=== PATIENT | male | born 1950 | race Caucasian/White ===

== ENCOUNTER 2017-01-04 06:02 | Day surgery (SDC) | payer MEDICARE, OTHER ==
--- NOTE | 2017-01-02 08:18 | SSS ---
CHIEF COMPLAINT: Need for screening colonoscopy. HISTORY OF PRESENT ILLNESS: Mr. Patterson is a 66-year-old male who presented to my office for followup. It was noted it had been over ten years since his last colonoscopy. He presents now for repeat colonoscopy. Risks and benefits were discussed and he is agreeable with proceeding. His last colonoscopy was in 2004 and was done by Dr. Johnson. It showed moderate left sided diverticulosis only. He has had no blood in his bowels or change in his bowel habits or abdominal pain. PAST MEDICAL HISTORY: 1. Hyperlipidemia. 2. Diverticulosis. 3. Gastroesophageal reflux disease. 4. Family history of colonic polyps. 5. History of adrenal adenoma on CT scan in 2004 during hospitalization for diverticulitis. PAST SURGICAL HISTORY: Negative other than the colonoscopy as above and removal of moles in 1990. CURRENT MEDICATIONS: None. ALLERGIES: NONE. FAMILY HISTORY: Father at 80 from congestive heart failure. He was a heavy smoker and had abdominal aortic bypass surgery. Mother is healthy. One brother with hypertension and also hiatal hernia with reflux. He has one sister. He has two sons, both in good health, and two daughters, both in good health. Maternal grandmother had brain tumor, a paternal uncle with Hodgkin's, paternal aunt with some other sort of cancer. SOCIAL HISTORY: He is an commercial attorney. He is with four children. He smoked two packs per day since age 17, but quit in 1981. He drinks alcohol very infrequently. REVIEW OF SYSTEMS: Negative except as in the history of present illness. PHYSICAL EXAMINATION: VITAL SIGNS: Blood pressure 130/80. Weight 224. Pulse 70. GENERAL: He is awake and alert, in no acute distress. HEENT: Unremarkable. NECK: Supple. LUNGS: Clear. CARDIOVASCULAR: Regular rate and rhythm without appreciable murmurs. ABDOMEN: Soft, nontender. EXTREMITIES: Without edema. RECTAL: Deferred until time of colonoscopy. NEUROLOGIC: Grossly nonfocal. ASSESSMENT: 1. Need for screening colonoscopy. 2. History of diverticulosis. PLAN: Colonoscopy on 01/04/17. #[id number] [facility]
[2017-01-04] MEDS ORDERED: LACTATED RINGERS 1,000 ML ONE (06:10)
[2017-01-04] MEDS ORDERED: PROPOFOL 200 MG/20 ML VIAL IV ONE (07:00)
[2017-01-04] MEDS ORDERED: LIDOCAINE 1% 10 ML VIAL INJ ONE (07:00)
--- NOTE | 2017-01-04 09:05 | OP ---
DATE OF PROCEDURE: 01/04/17 PREOPERATIVE DIAGNOSIS: 1. Screening colonoscopy. POSTOPERATIVE DIAGNOSIS: 1. Left sided diverticula, small, but moderate in number. 2. Otherwise, normal colonoscopy to the cecum. PROCEDURE: 1. Colonoscopy. SURGEON: Curtis Thurman MD. ESTIMATED BLOOD LOSS: None. COMPLICATIONS: No immediate complications. ANESTHESIA: Propofol 380 mg administered intravenously by Edmund Chauhan CRNA, using monitored anesthesia care. TECHNIQUE: After informed consent was obtained from the patient, the patient was taken to the Endoscopy Suite and placed in the left lateral decubitus position. After adequate conscious sedation was obtained, digital rectal examination was performed, which showed a normal sized prostate without suspicious nodules. The colonoscope was then advanced into the patient's rectum and up through the sigmoid, descending, transverse and ascending colon to the level of the cecum. There was significant looping experienced in the ascending colon and cecal region. We were able to get a good look at the cecum , but I could not enter the terminal ileum. Photograph of the cecum was taken. The scope was slowly withdrawn. Because of the looping, we had to go in and out of the ascending colon probably four times to be sure we got a good look at that area. The rest of the colon was viewed very easily in a 360 degree fashion. Left sided diverticula were noted, primarily in the descending and proximal sigmoid colon. The scope was retroflexed in the rectum and grade 1 internal hemorrhoids were noted. The colonoscope was then unretroflexed and air was suctioned out of the patient's rectum. The colonoscope was removed from the patient. The patient tolerated the procedure well and was taken back to the recovery area in good condition. PLAN: The patient will need repeat colonoscopy in 8 to 10 years. High fiber diet. #[id number] [facility]
[2017-01-04 09:33] VITALS: BP 128/85; TEMP 97.4; O2SAT 98
== END 2017-01-04 08:50 | disposition home or self-care (01) ==
LOC: AMB 06:02
PROVIDERS: ATTEND Family Medicine
DX: Z12.11 Encounter for screening for malignant neoplasm of colon (principal); K57.30 Diverticulosis of large intestine without perforation or abscess without bleeding; K64.0 First degree hemorrhoids; E78.5 Hyperlipidemia, unspecified; K21.9 Gastro-esophageal reflux disease without esophagitis; Z86.010 Personal history of colon polyps; Z87.891 Personal history of nicotine dependence
CPT/HCPCS: 00810; G0105; J3490; J7120

== ENCOUNTER 2017-09-20 11:02 | Emergency (ER) | payer MEDICARE, OTHER ==
[2017-09-20 11:13] VITALS: TEMP 99.3
--- NOTE | 2017-09-20 11:34 | ED.PDOC ---
History of Present Illness - General Chief Complaint: Cardiovascular Problem Stated Complaint: EDEMA/DISCOMFORT TO RLE Time Seen by Provider: 09/20/17 11:34 Source: patient Exam Limitations: no limitations - History of Present Illness Initial Comments: Eddie Patterson 67 y/o male sent by his primary md with worsening of his chronic right leg swelling the last 5 days;stated that he had this the last seven years intermittently comes and goes and today had pain for 3 days.No history of major trauma to legs,no fever pain on laying down.No weight loss.No long travel more than 4 hours. Timing/Duration: other - 7 years Improving Factors: nothing Worsening Factors: nothing Associated Symptoms: denies symptoms Allergies/Adverse Reactions: Allergies NO KNOWN ALLERGY Allergy (Verified 12/26/16 15:34) Home Medications: Ambulatory Orders B-Complex W/ Folic Acid [B Complex] 1 tab PO DAILY 01/04/17 Multiple Vitamins W/ Minerals [Multi Complete] 1 cap PO DAILY 01/04/17 Multiple Vitamins W/ Minerals [Vitamin D3 Complete] 1 tab PO DAILY 01/04/17 Vitamin E [Eql Vitamin E] 400 unit PO DAILY 01/04/17 Apixaban [Eliquis] 10 mg PO BID #30 tab 09/20/17 Lisinopril 20 mg PO DAILY #30 tab 09/20/17 Review of Systems - Review of Systems Constitutional: States: no symptoms reported EENTM: States: no symptoms reported Respiratory: States: no symptoms reported Cardiology: States: no symptoms reported Gastrointestinal/Abdominal: States: no symptoms reported Genitourinary: States: no symptoms reported Musculoskeletal: States: see HPI Skin: States: no symptoms reported Neurological: States: no symptoms reported Past Medical History (General) - Patient Medical History Hx Congestive Heart Failure: No Hx Diabetes: No Hx MRSA: No - Vaccination History Hx Influenza Vaccination: No Family Medical History - Family History Mother Family History: Unknown Hx Cardiac Disease: Yes - mom- age -91 Hx Family;Other: peripheral vascular disease-dad/ age 81;No family history of DVT Physical Exam - Physical Exam General Appearance: Alert, Comfortable, No apparent distress Eye Exam: bilateral normal Ears, Nose, Throat: hearing grossly normal, normal ENT inspection, normal pharynx Neck: non-tender, full range of motion, supple, normal inspection Respiratory: chest non-tender, lungs clear, normal breath sounds, no respiratory distress Cardiovascular/Chest: normal peripheral pulses, regular rate, rhythm, no gallop , no murmur Peripheral Pulses: radial,right: 2+, radial,left: 2+ Gastrointestinal/Abdominal: normal bowel sounds, non tender, soft, no organomegaly Back Exam: no CVA tenderness, no vertebral tenderness Extremity: swelling - right lower extremity Neurologic: no motor/sensory deficits, alert, normal mood/affect, oriented x 3 Skin Exam: normal color, warm/dry Lymphatic: no adenopathy Progress - Progress Progress: 09/20/17 12:00 Vital Signs - 8 hr 09/20/17 11:09 Temperature 99.3 F Pulse Rate [ 83 brachial] Blood Pressure 164/101 [right brachial ] O2 Sat by Pulse 98 Oximetry - Results/Orders Results/Orders: Laboratory Tests 09/20/17 09/20/17 09/20/17 14:13 14:13 14:13 WBC 9.8 RBC 4.77 Hgb 13.4 L Hct 39.8 L MCV 83.4 MCH 28.0 MCHC 33.6 RDW 13.1 Plt Count 193 MPV 7.9 Absolute Neuts (auto) 6.90 H Absolute Lymphs (auto) 1.80 Absolute Monos (auto) 0.80 Absolute Eos (auto) 0.20 Absolute Basos (auto) 0.10 Neutrophils % 69.9 Lymphocytes % 18.7 L Monocytes % 8.0 Eosinophils % 2.3 Basophils % 1.1 PT 12.9 H INR 1.140 PTT (SP) 29.3 Sodium 138 Potassium 4.8 Chloride 104 Carbon Dioxide 26 Anion Gap 12.8 BUN 16 Creatinine 1.20 BUN/Creatinine Ratio 13.3 Random Glucose 105 Serum Osmolality 277.2 Calcium 9.4 Venous ultrasound-DVT superficial femoral vein and peroneal vein right leg Departure - Departure Clinical Impression: Right leg swelling DVT, lower extremity, proximal, acute Qualifiers: Laterality: right Qualified Code(s): I82.4Y1 - Acute embolism and thrombosis of unspecified deep veins of right proximal lower extremity Hypertension Qualifiers: Hypertension type: unspecified Qualified Code(s): I10 - Essential (primary) hypertension Time of Disposition: 15:01 Disposition: Discharge to Home or Self Care Condition: Fair Departure Forms: ED Discharge - Pt. Copy, Patient Portal Self Enrollment Instructions: DI for Deep Vein Thrombosis, Deep Vein Thrombosis Referrals: Curtis Thurman III, MD [Primary Care Provider] - 1-2 Weeks Prescriptions: Apixaban [Eliquis] 10 mg PO BID #30 tab Lisinopril 20 mg PO DAILY #30 tab Home Medications: Ambulatory Orders B-Complex W/ Folic Acid [B Complex] 1 tab PO DAILY 01/04/17 Multiple Vitamins W/ Minerals [Multi Complete] 1 cap PO DAILY 01/04/17 Multiple Vitamins W/ Minerals [Vitamin D3 Complete] 1 tab PO DAILY 01/04/17 Vitamin E [Eql Vitamin E] 400 unit PO DAILY 01/04/17 Apixaban [Eliquis] 10 mg PO BID #30 tab 09/20/17 Lisinopril 20 mg PO DAILY #30 tab 09/20/17 Additional Instructions: Start taking Eliquis tonight;Follow up with your primary Md Dr. Thurman 09/23/2017 ;Return to emergency room as needed
--- NOTE | 2017-09-20 13:49 | US ---
EXAM DESCRIPTION: Extremity,Lower RT Arteries CLINICAL HISTORY: 67 years Male, swelling COMPARISON: None. TECHNIQUE: 2-D grayscale and color arterial duplex Doppler evaluation of the right lower extremity is performed. FINDINGS: No significant plaque is identified. There is triphasic to biphasic waveform flow from proximal to distal with no elevated velocities or arterial occlusion. IMPRESSION: Unremarkable arterial ultrasound of the right lower extremity. Electronically signed by: Ralph Raya MD 09/20/2017 1:47 PM MANAGER RESIDENTIAL
--- NOTE | 2017-09-20 13:53 | US ---
EXAM DESCRIPTION: Venous,Lower Extremity RT CLINICAL HISTORY: swelling right lower extremity swelling COMPARISON: March 05, 2013 TECHNIQUE: 2D grayscale and color venous duplex Doppler evaluation of the lower extremity are obtained from groin to calf. FINDINGS: Right common femoral vein shows normal compressibility and flow. There is hypoechoic thrombus with noncompressibility from the right superficial femoral vein to the popliteal vein and into the peroneal veins. No flow is seen in these vessels. Posterior tibial vein is patent.. IMPRESSION: Extensive right lower extremity deep vein thrombosis from the proximal superficial femoral vein to the peroneal vein. Findings on this exam were called to Dr. Frankie Lechuga at 09/20/2017 1:51 PM [employer]. Electronically signed by: Ralph Raya MD 09/20/2017 1:51 PM [employer]
[2017-09-20] MEDS ORDERED: cloNIDine HCL 0.1 MG TAB PO ONE (14:08)
[2017-09-20] MEDS ORDERED: ENOXAPARIN SODIUM 100 MG/ML SYG SUBCU ONE (14:57)
[2017-09-20 15:33] VITALS: BP 170/104; O2SAT 98
== END 2017-09-20 15:13 | disposition home or self-care (01) ==
LOC: ER 11:02
DX: I82.411 Acute embolism and thrombosis of right femoral vein (principal); I10 Essential (primary) hypertension
CPT/HCPCS: 36415; 80048; 85025; 85610; 85730; 93926; 93971; J1650

== ENCOUNTER → 2017-09-25 | Outpatient (CLI) | payer MEDICARE, OTHER | END | disposition home or self-care (01) | LOC: LAB.O 13:31 | PROVIDERS: ATTEND Family Medicine | DX: I80.201 Phlebitis and thrombophlebitis of unspecified deep vessels of right lower extremity (principal); D68.51 Activated protein C resistance; D68.52 Prothrombin gene mutation ==

== ENCOUNTER → 2018-03-13 | Outpatient (CLI) | payer MEDICARE, OTHER ==
--- NOTE | 2018-03-13 11:18 | US ---
EXAM DESCRIPTION: Venous,Lower Extremity RT: ULTRASOUND. CLINICAL HISTORY: I80.201 COMPARISON: Ultrasound duplex right lower extremity deep venous system, September 20, 2017. TECHNIQUE: Two -dimensional and doppler sonographic evaluation of the deep venous system of the right lower extremity. FINDINGS: Doppler evaluation shows decreased venous color flow and augmentation and phasicity in the right popliteal vein. Noncompressibility with the transducer and increased echogenicity in to the evaluation. Normal color flow and normal phasicity and augmentation of the right common femoral vein, femoral vein, greater saphenous vein, peroneal, and posterior tibial vein. These normal lower extremity deep veins showed normal occlusion with transducer pressure. Two-dimensional survey showed no echogenic thrombus within these veins. IMPRESSION: 1. Duplex ultrasound evaluation of the right lower extremity deep venous system showing residual thrombus in the right popliteal vein. The thrombus has decreased significantly in size since the prior study in September 2017. 2. The remainder of the right lower extremity deep venous system showing no thrombus, consistent with improved venous flow. Electronically signed by: Osvaldo Feliz MD 03/13/2018 11:16 AM CDT
== END ==
LOC: US 08:22
PROVIDERS: ATTEND Family Medicine
DX: M79.661 Pain in right lower leg (principal); M79.604 Pain in right leg; I80.201 Phlebitis and thrombophlebitis of unspecified deep vessels of right lower extremity

== ENCOUNTER → 2019-08-12 | Outpatient (CLI) | payer MEDICARE, OTHER | LOC: GMAL 11:08 | PROVIDERS: ATTEND Family Medicine | DX: D51.3 Other dietary vitamin B12 deficiency anemia (principal); R53.83 Other fatigue; E55.9 Vitamin D deficiency, unspecified; I10 Essential (primary) hypertension; E78.49 Other hyperlipidemia; Z12.5 Encounter for screening for malignant neoplasm of prostate | CPT/HCPCS: 82306; 82607; 84443; G0103 ==

== ENCOUNTER → 2020-02-16 | Outpatient (CLI) | payer MEDICARE, OTHER | LOC: GMAL 11:07 | PROVIDERS: ATTEND Family Medicine | DX: E55.9 Vitamin D deficiency, unspecified (principal) ==